=== PATIENT | female | born 1960 | race Caucasian/White ===

== ENCOUNTER 2024-07-12 07:43 | Day surgery (SDC) | payer OTHER ==
[~2024-07-12] VITALS: Ht 157.5 cm; Wt 80.7 kg
[2024-07-12] MEDS ORDERED: SIMETHICONE 40 MG/0.6 ML ML ONE (08:39)
[2024-07-12] MEDS ORDERED: MEPERIDINE 100 MG INJ. 100 MG/ML VIAL ONE (08:39)
[2024-07-12] MEDS ORDERED: GLYCOPYRROLATE 0.2 MG/ML VIAL ONE (08:40)
[2024-07-12] MEDS ORDERED: MIDAZOLAM HCL 5 MG/5 ML VIAL ONE (08:40)
[2024-07-12 14:42] VITALS: BP_SYST 140; PULSE 82; RESP 18; TEMP 97.9; O2SAT 99
== END 2024-07-12 09:55 | disposition home or self-care (01) ==
LOC: SDS 07:43 → SMU 07:45 → SDS 09:55
PROVIDERS: ATTEND Colon & Rectal Surgery
DX: R10.31 Right lower quadrant pain (principal); E78.5 Hyperlipidemia, unspecified; G43.909 Migraine, unspecified, not intractable, without status migrainosus; Z90.710 Acquired absence of both cervix and uterus; Z90.49 Acquired absence of other specified parts of digestive tract; Z98.890 Other specified postprocedural states; Z88.2 Allergy status to sulfonamides; Z88.5 Allergy status to narcotic agent; Z88.8 Allergy status to other drugs, medicaments and biological substances; Z79.899 Other long term (current) drug therapy; Z80.8 Family history of malignant neoplasm of other organs or systems
CPT/HCPCS: 45378; 99152; G0378; J2250; J2175; J3490